=== PATIENT | female | born 1970 | race Caucasian/White ===

== ENCOUNTER 2020-08-01 12:42 | Emergency (ER) | payer OTHER ==
[~2020-08-01] VITALS: Ht 160 cm; Wt 77.1 kg
[2020-08-01] MEDS ORDERED: BENADRYL25 MG PO (15:40)
[2020-08-01] MEDS ORDERED: CLARITIN10 MG PO (15:40)
== END 2020-08-01 15:47 | disposition home or self-care (01) ==
LOC: ER 12:42
DX: R21 Rash and other nonspecific skin eruption (principal)

== ENCOUNTER 2023-02-20 02:09 | Emergency (ER) | payer OTHER ==
[~2023-02-20] VITALS: Ht 160 cm; Wt 79.4 kg
[~2023-02-20 02:09] MED LIST: BENADRYL25 MG PO; CLARITIN10 MG PO
[2023-02-20 04:56] LABS: HEMATOCRIT 39.3 % (36.0-45.00); HEMOGLOBIN 12.8 g/dL (12.0-15.00); MEAN CELL VOLUME 87.8 fL (80.00-100.00); MEAN CORPUSCULAR HEMOGLOBIN 28.7 pg (27.00-32.0); MEAN CORPUSCULAR HGB CONC 32.7 g/dl (32.0-36.0); PLATELET COUNT 233 K/uL (150-450); RED BLOOD COUNT 4.48 M/uL (4.00-6.00); RED CELL DISTRIBUTION WIDTH 12.9 % (11.5-14.5)
[2023-02-20] MEDS ORDERED: ALBUTEROL2.5 MG/3 M IH (07:00)
[2023-02-20] MEDS ORDERED: BUDESONIDE0.5 MG/2 M IH (07:00)
[2023-02-20] MEDS ORDERED: ZYNCOF 20-400120 ML PO ×2 (07:01→07:02)
[2023-02-20] MEDS ORDERED: SINGULAIR10 MG PO ×2 (07:01→07:02)
[2023-02-20] MEDS ORDERED: SYMBICORT 16010.2 GM IH (07:03)
== END 2023-02-20 07:16 | disposition home or self-care (01) ==
LOC: ER 02:09
PROVIDERS: General Practice
DX: J45.901 Unspecified asthma with (acute) exacerbation (principal); Z20.822 Contact with and (suspected) exposure to COVID-19